=== PATIENT | male | born 1950 | race Two or more races ===

== ENCOUNTER 2020-11-29 12:18 | Emergency (ER) | payer OTHER, MEDICAID ==
[~2020-11-29] VITALS: Ht 170.2 cm; Wt 95.3 kg
[2020-11-29 12:21] VITALS: BP 157/69
[2020-11-29 13:02] LABS: Basophils # (auto) 0 10 ^3/uL (0-0.2); Basophils % (auto) 0.6 % (0.0-2.0); Eosinophils # (auto) 0.2 10 ^3/uL (0-0.8); Eosinophils % (auto) 3.6 % (0.0-7.0); Hematocrit 41.2 % (41.0-53.0); Lymphocytes # (auto) 3.3 10 ^3/uL (0.4-5.4); Lymphocytes % (auto) 49.2 % (10.0-50.0); Mean Corpuscular Hemoglobin 30.5 pg (28.0-32.0); Mean Corpuscular Volume 89.7 fL (80.0-100.0); Monocytes # (auto) 0.6 10 ^3/uL (0-1.3); Monocytes % (auto) 8.4 % (0.0-12.0); Neutrophils # (auto) 2.6 10 ^3/uL (1.6-8.6); Neutrophils % (auto) 38.2 % (37.0-80.0); Nucleated Red Blood Cells % 0.1 %; Red Blood Cells 4.59 10^6/uL (4.5-5.90); Red Cell Distribution Width 13.9 % (11.8-14.3); White Blood Cell 6.7 10^3/uL (4.4-10.8)
[2020-11-29 13:28] LABS: Albumin 3.7 g/dL (3.4-5.0); Anion Gap 6 (5-15); Blood Urea Nitrogen 19 mg/dL (7-18); Calcium 8.7 mg/dL (8.5-10.1); Carbon Dioxide 24 mmol/L (21-32); Chloride 110 mmol/L (98-107); Glucose 57 mg/dL (74-106); Lipase 141 U/L (73-393); Potassium 4.4 mmol/L (3.5-5.1); Sodium 140 mmol/L (136-145)
[2020-11-29 13:37] LABS: Alanine Aminotransferase 43 U/L (16-61); Alkaline Phosphatase 92 U/L (45-117); Aspartate Aminotransferase 18 U/L (15-37); BUN/Creatinine Ratio 17.6; Bilirubin, Total 0.6 mg/dL (0.2-1.0); GFR African American 87 mL/min; GFR Non-African American 72 mL/min; Total Protein 7.6 g/dL (6.4-8.2)
[2020-11-29 14:29] LABS: Lactic Acid w/Reflex 2.6 mmol/L (0.4-2.0)
[2020-11-29 19:23] LABS: Urine Bacteria NONE SEEN /hpf (None Seen); Urine Blood Negative /uL (Negative); Urine Hyaline Cast FEW /lpf (0 - 2); Urine Specific Gravity 1.013 (1.001-1.035); Urine WBC <1 /hpf (0 - 3)
== END 2020-11-29 22:20 | disposition left against medical advice (07) ==
LOC: ER 12:20
DX: R10.9 Unspecified abdominal pain (principal); Z53.21 Procedure and treatment not carried out due to patient leaving prior to being seen by health care provider
CPT/HCPCS: 36415; 74176; 80053; 81001; 83605; 83690; 84484; 85025; 93005

== ENCOUNTER 2021-10-21 01:54 | Inpatient (IN) | payer OTHER, MEDICAID ==
[~2021-10-21] VITALS: Ht 170.2 cm; Wt 88.5 kg
[2021-10-21 02:46] LABS: Basophils # (auto) 0 10 ^3/uL (0-0.2); Basophils % (auto) 0.6 % (0.0-2.0); Eosinophils # (auto) 0.6 10 ^3/uL (0-0.8); Eosinophils % (auto) 7.2 % (0.0-7.0); Hematocrit 38.3 % (41.0-53.0); Hemoglobin 12.7 g/dL (13.5-17.5); Lymphocytes # (auto) 1.7 10 ^3/uL (0.4-5.4); Lymphocytes % (auto) 20.6 % (10.0-50.0); Mean Corpuscular Hemoglobin 30.4 pg (28.0-32.0); Mean Corpuscular Hgb Conc. 33.1 g/dL (32.0-36.0); Mean Corpuscular Volume 91.7 fL (80.0-100.0); Monocytes # (auto) 0.4 10 ^3/uL (0-1.3); Monocytes % (auto) 4.6 % (0.0-12.0); Neutrophils # (auto) 5.6 10 ^3/uL (1.6-8.6); Red Blood Cells 4.18 10^6/uL (4.5-5.90); Red Cell Distribution Width 14.7 % (11.8-14.3); White Blood Cell 8.4 10^3/uL (4.4-10.8)
[2021-10-21 03:03] LABS: Albumin 3.5 g/dL (3.4-5.0); Calcium 8.3 mg/dL (8.5-10.1); Potassium 4.3 mmol/L (3.5-5.1)
[2021-10-21 03:06] LABS: BUN/Creatinine Ratio 15.9; Bilirubin, Total 0.3 mg/dL (0.2-1.0); Total Protein 7.2 g/dL (6.4-8.2)
[2021-10-21] MEDS ORDERED: FUROSEMIDE 100 MG/10ML VIAL IV ONE (03:15)
[2021-10-21] MEDS ORDERED: NITROGLYCERIN 50MG/250ML 250 ML IV ONE (03:15)
[2021-10-21 04:27] VITALS: BP 115/53
[2021-10-21 05:20] LABS: Urine Bacteria FEW /hpf (None Seen); Urine Blood TRACE /uL (Negative); Urine Hyaline Cast FEW /lpf (0 - 2); Urine Specific Gravity 1.012 (1.001-1.035); Urine WBC 53 /hpf (0 - 3)
[2021-10-21 06:12] VITALS: BP 119/50
[2021-10-21] MEDS ORDERED: SODIUM CHLORIDE 0.9% 1,000 ML IV ONE (07:00)
[2021-10-21] MEDS ORDERED: ASPirin 81 mg TAB PO ONE (07:00)
[2021-10-21 07:31] LABS: INR 1.04 (0.9-1.15); Partial Thromboplastin Time 26.5 sec (24.6-33.4)
[2021-10-21] MEDS ORDERED: IOHEXOL 350 MG/ML 100ML IJ ONE (07:56)
[2021-10-21] MEDS ORDERED: ENOXAPARIN SOD 60 MG/0.6 ML SYRINGE SC ONE (08:00)
[2021-10-21 09:03] VITALS: BP 119/50
[2021-10-21] MEDS ORDERED: HEPARIN SODIUM (PORCINE) 5000 UNITS/ML 1ML VIAL IV ONE (10:45)
[2021-10-21] MEDS ORDERED: NITROGLYCERIN 0.4 MG SL TAB SL PRN (10:45)
[2021-10-21] MEDS ORDERED: MORPHINE SULFATE INJ 2 MG/ml SYRG IV PRN (10:45)
[2021-10-21] MEDS ORDERED: HEPARIN DRIP/D5W 100UNITS/ML 250 ML IV SCH (10:45)
[2021-10-21] MEDS ORDERED: ASPirin-EC 81 mg tab PO ONE (10:45)
[2021-10-21] MEDS ORDERED: MAGNESIUM OXIDE 400 MG TAB PO ONE (11:00)
[2021-10-21] MEDS ORDERED: DEXTROSE (50%) 50ML SYRG IV PRN (11:00)
[2021-10-21] MEDS ORDERED: CLOPIDOGREL 300 MG TAB PO ONE (11:15)
[2021-10-21] MEDS: InsuLIN REG 1unit/0.01ml Soln (100units/ml) SC SCH ×3 (11:30→22:18)
[2021-10-21 11:51] LABS: Basophils # (auto) 0 10 ^3/uL (0-0.2); Basophils % (auto) 0.5 % (0.0-2.0); Eosinophils # (auto) 0.5 10 ^3/uL (0-0.8); Eosinophils % (auto) 7.2 % (0.0-7.0); Hematocrit 36.3 % (41.0-53.0); Hemoglobin 11.7 g/dL (13.5-17.5); Lymphocytes # (auto) 1.6 10 ^3/uL (0.4-5.4); Mean Corpuscular Hemoglobin 29.3 pg (28.0-32.0); Mean Corpuscular Hgb Conc. 32.1 g/dL (32.0-36.0); Mean Corpuscular Volume 91.1 fL (80.0-100.0); Monocytes # (auto) 0.4 10 ^3/uL (0-1.3); Monocytes % (auto) 6.8 % (0.0-12.0); Neutrophils % (auto) 61.5 % (37.0-80.0); Red Blood Cells 3.99 10^6/uL (4.5-5.90); Red Cell Distribution Width 14.2 % (11.8-14.3); White Blood Cell 6.5 10^3/uL (4.4-10.8)
[2021-10-21] MEDS: ACCU-CHEK COMFORT CURVE STRIP VI SCH ×3 (11:57→22:17)
[2021-10-21 12:17] LABS: INR 1.06 (0.9-1.15); Partial Thromboplastin Time 30.1 sec (24.6-33.4)
[2021-10-21] MEDS ORDERED: METF-372 PO (17:19)
[2021-10-21] MEDS ORDERED: TAM04C PO (17:19)
[2021-10-21] MEDS ORDERED: ATO40T PO (17:19)
[2021-10-21] MEDS ORDERED: GLIP5TAB12 PO (17:19)
[2021-10-21] MEDS ORDERED: ENAL10TA12 PO (17:19)
[2021-10-21] MEDS ORDERED: PIOG15TA25 PO (17:19)
[2021-10-21] MEDS ORDERED: HYDR12.56 PO (17:19)
[2021-10-21 18:48] LABS: INR 1.05 (0.9-1.15); Partial Thromboplastin Time 42.3 sec (24.6-33.4)
[2021-10-21] MEDS: HEPARIN DRIP/D5W 100UNITS/ML 250 ML IV SCH (19:20)
[2021-10-21] MEDS: FUROSEMIDE 40 MG/4 ML VIAL IV SCH (20:02)
[2021-10-22 00:40] LABS: INR 1.03 (0.9-1.15); Partial Thromboplastin Time 42.6 sec (24.6-33.4)
[2021-10-22] MEDS: HEPARIN DRIP/D5W 100UNITS/ML 250 ML IV SCH ×2 (00:53→07:07)
[2021-10-22] MEDS: FUROSEMIDE 40 MG/4 ML VIAL IV SCH ×2 (06:34→18:28)
[2021-10-22] MEDS: ACCU-CHEK COMFORT CURVE STRIP VI SCH ×4 (06:48→22:00)
[2021-10-22] MEDS: InsuLIN REG 1unit/0.01ml Soln (100units/ml) SC SCH ×4 (06:49→22:00)
[2021-10-22 07:01] LABS: INR 1.04 (0.9-1.15); Partial Thromboplastin Time 49.7 sec (24.6-33.4)
[2021-10-22] MEDS: cefTRIAXone 1GM/50ML D5W 50 ML IV SCH (10:13)
[2021-10-22 13:45] LABS: Partial Thromboplastin Time 26.3 sec (24.6-33.4)
[2021-10-22] MEDS ORDERED: HEPARIN SODIUM (PORCINE) 5000 UNITS/ML 1ML VIAL IV ONE (14:30)
[2021-10-22] MEDS: ASPirin 81 mg TAB PO SCH (15:10)
[2021-10-22 15:39] LABS: Calcium 8.5 mg/dL (8.5-10.1); Potassium 4.2 mmol/L (3.5-5.1)
[2021-10-22 21:46] LABS: INR 1.03 (0.9-1.15); Partial Thromboplastin Time 61.5 sec (24.6-33.4)
[2021-10-22] MEDS: ATORVASTATIN 20 MG TAB PO SCH (22:48)
[2021-10-23 03:51] LABS: INR 1.02 (0.9-1.15)
[2021-10-23 03:58] LABS: Partial Thromboplastin Time 77.2 sec (24.6-33.4)
[2021-10-23] MEDS: HEPARIN DRIP/D5W 100UNITS/ML 250 ML IV SCH (05:49)
[2021-10-23] MEDS: FUROSEMIDE 40 MG/4 ML VIAL IV SCH (06:10)
[2021-10-23 06:16] LABS: Basophils # (auto) 0 10 ^3/uL (0-0.2); Basophils % (auto) 0.8 % (0.0-2.0); Eosinophils # (auto) 0.6 10 ^3/uL (0-0.8); Eosinophils % (auto) 10.2 % (0.0-7.0); Hematocrit 36.6 % (41.0-53.0); Hemoglobin 12.1 g/dL (13.5-17.5); Lymphocytes # (auto) 1.9 10 ^3/uL (0.4-5.4); Mean Corpuscular Hemoglobin 29.7 pg (28.0-32.0); Mean Corpuscular Hgb Conc. 33.2 g/dL (32.0-36.0); Mean Corpuscular Volume 89.5 fL (80.0-100.0); Monocytes # (auto) 0.5 10 ^3/uL (0-1.3); Monocytes % (auto) 8.7 % (0.0-12.0); Neutrophils # (auto) 2.9 10 ^3/uL (1.6-8.6); Neutrophils % (auto) 48.3 % (37.0-80.0); Nucleated Red Blood Cells % 0.1 %; Red Blood Cells 4.08 10^6/uL (4.5-5.90); Red Cell Distribution Width 14.5 % (11.8-14.3)
[2021-10-23 07:02] LABS: BUN/Creatinine Ratio 27.1; Calcium 8.3 mg/dL (8.5-10.1); Magnesium 1.6 mg/dL (1.6-2.6); Potassium 4.1 mmol/L (3.5-5.1)
[2021-10-23] MEDS: ACCU-CHEK COMFORT CURVE STRIP VI SCH ×4 (07:04→22:03)
[2021-10-23] MEDS: InsuLIN REG 1unit/0.01ml Soln (100units/ml) SC SCH ×4 (07:05→22:03)
[2021-10-23] MEDS ORDERED: IODIXANOL 320MG/ML 100ML BTL IV ONE (08:27)
[2021-10-23] MEDS ORDERED: LIDOCAINE 2%HCL (LOCAL ANESTH.) INJ 10ml MDV ONE (08:27)
[2021-10-23] MEDS ORDERED: MAGNESIUM SULFATE 1GM/100ML 100 ML IV ONE (08:30)
[2021-10-23 08:50] LABS: Cholesterol 176 mg/dL (< 200)
[2021-10-23 08:53] LABS: HDL Cholesterol 43 mg/dL (40-59); LDL Cholesterol 129 mg/dL (< 100); Triglycerides 154 mg/dL (< 150)
[2021-10-23] MEDS ORDERED: VERAPAMIL 2.5MG/ML INJ 2ML VIAL IV ONE (09:36)
[2021-10-23] MEDS ORDERED: HEPARIN SODIUM (PORCINE) 5000 UNITS/ML 1ML VIAL ONE (09:36)
[2021-10-23] MEDS ORDERED: ANGIOMAX 250 MG VIAL IV ONE (09:36)
[2021-10-23] MEDS ORDERED: SODIUM CHL 0.9% 0 ML ONE (09:37)
[2021-10-23] MEDS ORDERED: MIDAZOLAM HCL 2MG/2ML 2ml VIAL (1mg/ml) ONE (09:37)
[2021-10-23] MEDS ORDERED: fentaNYL CITRATE 100 MCG/2 ML VL ONE (09:37)
[2021-10-23] MEDS ORDERED: hydrALAZINE HCL 20 MG/ML VL ONE (10:06)
[2021-10-23] MEDS: cefTRIAXone 1GM/50ML D5W 50 ML IV SCH (11:27)
[2021-10-23] MEDS: ASPirin 81 mg TAB PO SCH (11:27)
[2021-10-23 13:01] LABS: INR 1.03 (0.9-1.15)
[2021-10-23 13:29] LABS: Partial Thromboplastin Time 100.2 sec (24.6-33.4)
[2021-10-23] MEDS: amLODIPine BESYLATE 5 MG TAB PO SCH (14:42)
[2021-10-23] MEDS: LISINOPRIL 20 MG TAB PO SCH (14:43)
[2021-10-23 16:33] VITALS: BP 152/48
[2021-10-23 22:00] VITALS: BP 135/39
[2021-10-23] MEDS: ATORVASTATIN 20 MG TAB PO SCH (22:03)
[2021-10-24 05:00] VITALS: BP 149/56
[2021-10-24] MEDS: InsuLIN REG 1unit/0.01ml Soln (100units/ml) SC SCH ×3 (06:39→17:42)
[2021-10-24] MEDS: ACCU-CHEK COMFORT CURVE STRIP VI SCH ×3 (06:40→17:43)
[2021-10-24] MEDS: amLODIPine BESYLATE 5 MG TAB PO SCH (08:58)
[2021-10-24] MEDS: cefTRIAXone 1GM/50ML D5W 50 ML IV SCH (08:58)
[2021-10-24] MEDS: ASPirin 81 mg TAB PO SCH (08:58)
[2021-10-24] MEDS: LISINOPRIL 20 MG TAB PO SCH (08:58)
[2021-10-24 09:00] VITALS: BP 111/82
[2021-10-24 11:30] LABS: Calcium 8.1 mg/dL (8.5-10.1); Potassium 4.1 mmol/L (3.5-5.1)
[2021-10-24 13:00] VITALS: BP 143/46
[2021-10-24] MEDS ORDERED: ASPI-325 PO (16:28)
[2021-10-24 16:35] VITALS: BP 144/66
[2021-10-24] MEDS ORDERED: AML5T PO (18:04)
== END 2021-10-24 18:04 | disposition home or self-care (01) | DRG 250 ==
LOC: ER 01:54 → TELE 10:43 → TELE-WESTW 10-23 12:51
PROVIDERS: ADMIT Internal Medicine; ATTEND Internal Medicine
PROC: 5A09357 Assistance with Respiratory Ventilation, Less than 24 Consecutive Hours, Continuous Positive Airway Pressure (ICD-10-PCS; 2021-10-21)
PROC: 02703ZZ Dilation of Coronary Artery, One Artery, Percutaneous Approach (ICD-10-PCS; principal; 2021-10-23)
PROC: 4A023N7 Measurement of Cardiac Sampling and Pressure, Left Heart, Percutaneous Approach (ICD-10-PCS; 2021-10-23)
PROC: B211YZZ Fluoroscopy of Multiple Coronary Arteries using Other Contrast (ICD-10-PCS; 2021-10-23)
PROC: B215YZZ Fluoroscopy of Left Heart using Other Contrast (ICD-10-PCS; 2021-10-23)
PROC: 4A033BC Measurement of Arterial Pressure, Coronary, Percutaneous Approach (ICD-10-PCS; 2021-10-23)
DX: I21.4 Non-ST elevation (NSTEMI) myocardial infarction (principal); I50.31 Acute diastolic (congestive) heart failure; J96.01 Acute respiratory failure with hypoxia; N39.0 Urinary tract infection, site not specified; N17.9 Acute kidney failure, unspecified; E11.9 Type 2 diabetes mellitus without complications; E78.00 Pure hypercholesterolemia, unspecified; I11.0 Hypertensive heart disease with heart failure; Z20.822 Contact with and (suspected) exposure to COVID-19; N40.0 Benign prostatic hyperplasia without lower urinary tract symptoms; I24.9 Acute ischemic heart disease, unspecified; I25.10 Atherosclerotic heart disease of native coronary artery without angina pectoris; Z79.84 Long term (current) use of oral hypoglycemic drugs; Z87.891 Personal history of nicotine dependence; Z72.89 Other problems related to lifestyle
CPT/HCPCS: 36415; 71045; 71275; 80048; 80053; 80061; 81001; 82962; 83036; 83735; 83880; 84439; 84443; 84484; 85025; 85379; 85610; 85730; 92920; 93005; 93306; 93458; 93571; 94660; 96365; 96367; 96372; 96375; 96376; 97163; 99152; 99153; 99291; C1769; C1887; G0378; J0696; J1815; J2001; J2250; Q9967